=== PATIENT | male | born 1950 | race Caucasian/White ===

== ENCOUNTER 2016-07-24 09:50 | Day surgery (SDC) | payer MEDICARE ==
--- NOTE | ~2016-07-24 | EGD ---
EGD REPORT [facility] [address] [place] [place] [id number] NAME: VALERIO SMITH : [birth year] STATUS : REG [facility]#: [id number] AGE: 66 ADM/REG DATE : 07/24/16 MR#: [id number] REPORT SERV DATE: 07/24/16 DICTATED BY: JAQUELINE CALLE DATE: 07/24/16 REPORT STATUS : Draft TRANSCRIBED BY: [employer] DATE: 07/24/16 [facility] Patient Name: Valerio Smith Date of : 1950 Attending MD: JAQUELINE CALLE MD Procedure Date No Time: 07/24/2016 Procedure: Colonoscopy Indications: High risk colon cancer surveillance: Personal history of colonic polyps, FH of Colon Cancer - multiple second-degree relatives Medicines: as per anesthesia Complications: No immediate complications. Procedure: Pre-Anesthesia Assessment: - ASA Grade Assessment: III - A patient with severe systemic disease. After I obtained informed consent, the scope was passed under direct vision. Throughout the procedure, the patient's blood pressure, pulse, and oxygen saturations were monitored continuously. The PCF [id number] was introduced through the anus and advanced to the cecum, identified by appendiceal orifice and ileocecal valve. The colonoscopy was performed without difficulty. The patient tolerated the procedure. The quality of the bowel preparation was adequate to identify polyps. Findings: The perianal and digital rectal examinations were normal. Internal hemorrhoids were found during endoscopy and were mild. Impression: - Internal hemorrhoids. Recommendation: - Repeat colonoscopy in 5 years for surveillance. Procedure Code(s): --- Professional --- 76614, Colonoscopy, flexible, proximal to splenic flexure; diagnostic, with or without collection of specimen(s) by brushing or washing, with or without colon decompression (separate procedure) Diagnosis Code(s): --- Professional --- K64.8, Other hemorrhoids Z86.010, Personal history of colonic polyps Z80.0, Family history of malignant neoplasm of digestive organs EGD REPORT [facility] [address] [id number] NAME: VALERIO SMITH : [birth year] STATUS : REG [facility]#: [id number] AGE: 66 ADM/REG DATE : 07/24/16 MR#: [id number] REPORT SERV DATE: 07/24/16 DICTATED BY: JAQUELINE CALLE. DATE: 07/24/16 REPORT STATUS : Draft TRANSCRIBED BY: [employer] DATE: 07/24/16 CPT copyright 2013 [employer]. All rights reserved. The codes documented in this report are preliminary and upon certified coder review may be revised to meet current compliance requirements. JAQUELINE CALLE MD 07/24/2016 11:17 AM This report has been signed electronically. Number of Addenda: 0 Note Initiated On: 07/24/2016 10:52 AM Scope Withdrawal Time 0 hours 6 minutes 12 seconds [id number] [id number]
[~2016-07-24 09:50] MED LIST: ASAB PO; DIOV80 PO; FISH OIL1200 MG PO; LIPITOR20 PO; MULTIVITAMI1 PO; TUMERIC CURCUMIN PO; VITAMIN B-121000 MC1 SL
== END 2016-07-24 23:59 | disposition home or self-care (01) ==
LOC: DMU 09:50
PROVIDERS: Internal Medicine Gastroenterology
PROC: 0DJD8ZZ Inspection of Lower Intestinal Tract, Via Natural or Artificial Opening Endoscopic (ICD-10-PCS; principal; 2016-07-24 10:30)
DX: K64.8 Other hemorrhoids (principal); I10 Essential (primary) hypertension; G47.33 Obstructive sleep apnea (adult) (pediatric); Z86.010 Personal history of colon polyps; Z80.0 Family history of malignant neoplasm of digestive organs; Z99.89 Dependence on other enabling machines and devices; Z79.82 Long term (current) use of aspirin; Z79.899 Other long term (current) drug therapy; Z90.89 Acquired absence of other organs; Z98.890 Other specified postprocedural states